=== PATIENT | female | born 1970 | race Caucasian/White ===

== ENCOUNTER 2021-11-26 01:19 | Emergency (ER) | payer BC ==
[~2021-11-26] VITALS: Ht 160 cm; Wt 57.6 kg
[2021-11-26 01:39] VITALS: BP 148/82
[2021-11-26 01:53] LABS: APPEARANCE,URINE CLEAR (CLEAR); BILIRUBIN,URINE NEGATIVE (NEGATIVE); COLOR,URINE YELLOW (YELLOW); GLUCOSE, URINE (UA) NEGATIVE (NEGATIVE); KETONES,URINE NEGATIVE (NEGATIVE); LEUKOCYTE ESTERASE ,URINE NEGATIVE (NEGATIVE); NITRATE,URINE NEGATIVE (NEGATIVE); OCCULT BLOOD,URINE SMALL (NEGATIVE); PROTEIN,URINE NEGATIVE (NEGATIVE); UROBILINOGEN,URINE 0.2 mg/dL (0.2-1.0)
[2021-11-26 02:02] LABS: BACTERIA,URINE Rare /HPF (None Seen); SQUAMOUS EPITHELIAL CELL,UR 0-2 /HPF (0-2); WBC,URINE 0-1 /HPF (0-1)
== END 2021-11-26 02:31 | disposition home or self-care (01) ==
LOC: EDH 01:26
DX: R33.9 Retention of urine, unspecified (principal); Z88.2 Allergy status to sulfonamides; Z90.49 Acquired absence of other specified parts of digestive tract; Z95.0 Presence of cardiac pacemaker
CPT/HCPCS: 51702; 81001

== ENCOUNTER 2022-01-28 09:03 | Emergency (ER) | payer BC ==
[~2022-01-28] VITALS: Ht 160 cm; Wt 55.8 kg
[2022-01-28] MEDS ORDERED: LACTATED RINGERS 1000ML 1,000 ML IV ONE (09:30)
[2022-01-28 09:43] LABS: AMPHET/METH SCREEN,URINE POSITIVE (NEGATIVE); BARBITURATE SCREEN, URINE NEGATIVE (NEGATIVE); BENZODIAZEPINES SCREEN,URINE NEGATIVE (NEGATIVE); CANNABINOID SCREEN,URINE NEGATIVE (NEGATIVE); COCAINE SCREEN,URINE NEGATIVE (NEGATIVE); OPIATE SCREEN,URINE NEGATIVE (NEGATIVE); PHENCYCLIDINE SCREEN,URINE NEGATIVE (NEGATIVE)
[2022-01-28 10:08] LABS: APPEARANCE,URINE Cloudy (CLEAR); BILIRUBIN,URINE Moderate (NEGATIVE); COLOR,URINE Dark Yellow (YELLOW); GLUCOSE, URINE (UA) Negative (NEGATIVE); KETONES,URINE 15 mg/dL (NEGATIVE); LEUKOCYTE ESTERASE ,URINE Small (NEGATIVE); NITRATE,URINE Negative (NEGATIVE); OCCULT BLOOD,URINE Negative (NEGATIVE); PROTEIN,URINE POS 1+ mg/dL (NEGATIVE)
[2022-01-28 10:09] LABS: BASOPHILS % (AUTO) 0.3 % (0.0-5.0); EOSINOPHILS % (AUTO) 0.3 % (0.0-8.0); HEMATOCRIT 41.9 % (36-48); LYMPHOCYTES % (AUTO) 20.7 % (21.0-51.0); MEAN CORPUSCULAR HEMOGLOBIN 27.8 pg (27.0-33.0); MEAN CORPUSCULAR HGB CONC 33.2 g/dL (32.0-36.0); MEAN CORPUSCULAR VOLUME 83.8 fL (79-99); MONOCYTES % (AUTO) 6.2 % (3.0-13.0); NEUTROPHILS % (AUTO) 72.2 % (40.0-77.0); PLATELET COUNT (AUTO) 143 K/uL (130-400); RED CELL DISTRIBUTION WIDTH 13.4 % (11.0-15.5); WHITE BLOOD COUNT (AUTO) 6.6 K/uL (4.8-10.8)
[2022-01-28 10:15] LABS: CREATININE 1.3 mg/dL (0.5-1.5); POTASSIUM 3.6 mmol/L (3.5-5.1)
[2022-01-28 10:16] LABS: BACTERIA,URINE Few /HPF (None Seen); RBC,URINE 0-1 /HPF (0-1)
[2022-01-28 10:17] LABS: SQUAMOUS EPITHELIAL CELL,UR Few /HPF (0-2)
[2022-01-28 10:20] LABS: ALBUMIN 4.3 g/dL (3.5-5.0); BILIRUBIN,TOTAL 0.4 mg/dL (0.2-1.0); TOTAL PROTEIN, SERUM 7.5 g/dL (6.0-8.3)
[2022-01-28 10:31] LABS: B-TYPE NATRIURETIC PEPTIDE 8 pg/mL (0-100)
[2022-01-28 11:22] VITALS: BP 129/74
== END 2022-01-28 11:24 | disposition home or self-care (01) ==
LOC: EDH 09:03
DX: F15.10 Other stimulant abuse, uncomplicated (principal); M54.2 Cervicalgia; R55 Syncope and collapse; F32.9 Major depressive disorder, single episode, unspecified; E11.9 Type 2 diabetes mellitus without complications; Z87.442 Personal history of urinary calculi; Z90.49 Acquired absence of other specified parts of digestive tract; Z90.89 Acquired absence of other organs; Z90.710 Acquired absence of both cervix and uterus; Z98.890 Other specified postprocedural states; Z88.2 Allergy status to sulfonamides; Z88.8 Allergy status to other drugs, medicaments and biological substances
CPT/HCPCS: 36415; 70450; 71045; 72125; 80053; 80305; 81001; 82550; 83880; 84484; 85025; 93005

== ENCOUNTER 2022-02-23 12:04 | Emergency (ER) | payer BC ==
[~2022-02-23] VITALS: Ht 160 cm; Wt 55.8 kg
[2022-02-23 12:28] LABS: BASOPHILS % (AUTO) 0.6 % (0.0-5.0); EOSINOPHILS % (AUTO) 1.7 % (0.0-8.0); HEMATOCRIT 44.6 % (36-48); LYMPHOCYTES % (AUTO) 31.1 % (21.0-51.0); MEAN CORPUSCULAR HEMOGLOBIN 28.1 pg (27.0-33.0); MEAN CORPUSCULAR HGB CONC 31.6 g/dL (32.0-36.0); MONOCYTES % (AUTO) 8.1 % (3.0-13.0); NEUTROPHILS % (AUTO) 58.2 % (40.0-77.0); PLATELET COUNT (AUTO) 187 K/uL (130-400); RED BLOOD CELL COUNT(AUTO) 5.01 MIL/uL (4.00-5.50); RED CELL DISTRIBUTION WIDTH 14.1 % (11.0-15.5); WHITE BLOOD COUNT (AUTO) 6.6 K/uL (4.8-10.8)
[2022-02-23] MEDS: ONDANSETRON 4MG INJ ONE (12:32)
[2022-02-23] MEDS: 0.9%NACL 1000ML 1,000 ML IV ONE (12:32)
[2022-02-23 12:35] LABS: APPEARANCE,URINE Cloudy (CLEAR); BILIRUBIN,URINE Small (NEGATIVE); COLOR,URINE Dark Yellow (YELLOW); GLUCOSE, URINE (UA) Negative (NEGATIVE); KETONES,URINE Trace mg/dL (NEGATIVE); LEUKOCYTE ESTERASE ,URINE Small (NEGATIVE); NITRATE,URINE Negative (NEGATIVE); OCCULT BLOOD,URINE Negative (NEGATIVE); PH,URINE 5.5 (5.0-8.0); PROTEIN,URINE Trace mg/dL (NEGATIVE); UROBILINOGEN,URINE 0.2 mg/dL (0.2-1.0)
[2022-02-23 12:40] LABS: CREATININE 0.9 mg/dL (0.5-1.5); POTASSIUM 4.1 mmol/L (3.5-5.1)
[2022-02-23 12:45] LABS: ALBUMIN 4.1 g/dL (3.5-5.0); BILIRUBIN,TOTAL 0.6 mg/dL (0.2-1.0); TOTAL PROTEIN, SERUM 7.6 g/dL (6.0-8.3)
[2022-02-23 12:57] LABS: BACTERIA,URINE Few /HPF (None Seen); MUCUS,URINE Few LPF (None Seen); RBC,URINE None Seen /HPF (0-1); SQUAMOUS EPITHELIAL CELL,UR 30-50 /HPF (0-2)
[2022-02-23] MEDS: DICYCLOMINE 20MG (10MG/ML) AMP IM STA (13:38)
[2022-02-23] MEDS: FAMOTIDINE 20MG VIAL IV ONE (13:38)
[2022-02-23 14:38] VITALS: BP 128/73
[2022-02-23] MEDS ORDERED: BACI1CAP6 PO (15:20)
[2022-02-23] MEDS ORDERED: DICY20TA2 PO (15:20)
[2022-02-23] MEDS ORDERED: ONDA4TAB10 PO (15:20)
== END 2022-02-23 15:25 | disposition home or self-care (01) ==
LOC: EDH 12:04
DX: K52.9 Noninfective gastroenteritis and colitis, unspecified (principal); E11.9 Type 2 diabetes mellitus without complications; Z79.899 Other long term (current) drug therapy; Z88.2 Allergy status to sulfonamides; Z98.84 Bariatric surgery status
CPT/HCPCS: 36415; 80053; 81001; 83690; 85025; 96361; 96372; 96374; 96375; 99284; J0500; J2405; J3490; J7030

== ENCOUNTER 2022-03-03 14:01 | Emergency (ER) | payer BC ==
[~2022-03-03] VITALS: Ht 160 cm; Wt 56.7 kg
[~2022-03-03 14:01] MED LIST: BACI1CAP6 PO; DICY20TA2 PO; ONDA4TAB10 PO
[2022-03-03] MEDS ORDERED: NIRM1TAB PO (14:51)
[2022-03-03] MEDS ORDERED: PRED5TAB PO (14:51)
[2022-03-03 14:54] VITALS: BP 128/77
[2022-03-03] MEDS ORDERED: 0.9%NACL 1000ML 1,000 ML IV SCH (16:00)
== END 2022-03-03 15:03 | disposition home or self-care (01) ==
LOC: EDH 14:01
DX: U07.1 COVID-19 (principal); R19.7 Diarrhea, unspecified; K21.9 Gastro-esophageal reflux disease without esophagitis; E11.9 Type 2 diabetes mellitus without complications; Z88.2 Allergy status to sulfonamides; Z79.899 Other long term (current) drug therapy

== ENCOUNTER 2022-03-09 12:21 | Emergency (ER) | payer BC ==
[~2022-03-09] VITALS: Ht 160 cm; Wt 54.9 kg
[~2022-03-09 12:21] MED LIST changes: +NIRM1TAB PO; +PRED5TAB PO
[2022-03-09 13:18] LABS: BASOPHILS % (AUTO) 0.3 % (0.0-5.0); EOSINOPHILS % (AUTO) 0.2 % (0.0-8.0); HEMATOCRIT 39.3 % (36-48); LYMPHOCYTES % (AUTO) 27.1 % (21.0-51.0); MEAN CORPUSCULAR HEMOGLOBIN 28.4 pg (27.0-33.0); MEAN CORPUSCULAR HGB CONC 32.6 g/dL (32.0-36.0); MEAN CORPUSCULAR VOLUME 87.3 fL (79-99); MONOCYTES % (AUTO) 5.9 % (3.0-13.0); NEUTROPHILS % (AUTO) 66.2 % (40.0-77.0); PLATELET COUNT (AUTO) 183 K/uL (130-400); WHITE BLOOD COUNT (AUTO) 6.3 K/uL (4.8-10.8)
[2022-03-09] MEDS ORDERED: 0.9%NACL 1000ML 1,000 ML IV ONE (13:30)
[2022-03-09 13:55] LABS: CREATININE 1.1 mg/dL (0.5-1.5); POTASSIUM 3.9 mmol/L (3.5-5.1)
[2022-03-09 13:59] LABS: ALBUMIN 3.9 g/dL (3.5-5.0); BILIRUBIN,TOTAL 0.2 mg/dL (0.2-1.0); TOTAL PROTEIN, SERUM 7.4 g/dL (6.0-8.3)
[2022-03-09] MEDS ORDERED: MORPHINE 4 MG SYG IVP ONE (14:00)
[2022-03-09] MEDS ORDERED: PANTOPRAZOLE 40 MG/VIAL IVP ONE (14:00)
[2022-03-09] MEDS ORDERED: ONDANSETRON 4MG INJ IVP ONE (14:00)
[2022-03-09] MEDS ORDERED: IOHEXOL-350 75 ML VIAL IV ONE (14:32)
[2022-03-09 14:46] LABS: APPEARANCE,URINE Cloudy (CLEAR); BILIRUBIN,URINE Negative (NEGATIVE); COLOR,URINE Yellow (YELLOW); GLUCOSE, URINE (UA) Negative (NEGATIVE); KETONES,URINE Negative (NEGATIVE); LEUKOCYTE ESTERASE ,URINE Trace (NEGATIVE); NITRATE,URINE Negative (NEGATIVE); OCCULT BLOOD,URINE Negative (NEGATIVE); PH,URINE 5.5 (5.0-8.0); PROTEIN,URINE Trace mg/dL (NEGATIVE); UROBILINOGEN,URINE 0.2 mg/dL (0.2-1.0)
[2022-03-09 15:05] LABS: BACTERIA,URINE Few /HPF (None Seen); MUCUS,URINE Few LPF (None Seen); SQUAMOUS EPITHELIAL CELL,UR Few /HPF (0-2)
[2022-03-09] MEDS ORDERED: DICY20TA2 PO (15:42)
[2022-03-09] MEDS ORDERED: VANC125C6 PO (15:42)
[2022-03-09] MEDS ORDERED: ONDA4TAB10 PO (15:42)
[2022-03-09] MEDS ORDERED: LOPE2 PO (15:42)
[2022-03-09 16:15] VITALS: BP 114/67
== END 2022-03-09 16:19 | disposition home or self-care (01) ==
LOC: EDH 12:21
DX: K52.9 Noninfective gastroenteritis and colitis, unspecified (principal); A04.72 Enterocolitis due to Clostridium difficile, not specified as recurrent; E11.9 Type 2 diabetes mellitus without complications; K21.9 Gastro-esophageal reflux disease without esophagitis; Z88.2 Allergy status to sulfonamides; Z88.8 Allergy status to other drugs, medicaments and biological substances; Z79.899 Other long term (current) drug therapy; Z98.890 Other specified postprocedural states
CPT/HCPCS: 36415; 74177; 80053; 81001; 82270; 83605; 83630; 83690; 85025; 87040 ×2; 87046; 87177; 87324; 96361; 96374; 96375; 99284; C9113; J2270; J2405; J7030; Q9967

== ENCOUNTER 2022-04-29 11:45 | Emergency (ER) | payer BC ==
[~2022-04-29] VITALS: Ht 160 cm; Wt 56.7 kg
[~2022-04-29 11:45] MED LIST changes: +LOPE2 PO; +VANC125C6 PO
[2022-04-29 11:46] VITALS: BP 122/62
[2022-04-29 12:23] LABS: BASOPHILS % (AUTO) 0.5 % (0.0-5.0); EOSINOPHILS % (AUTO) 1.2 % (0.0-8.0); HEMATOCRIT 41.6 % (36-48); LYMPHOCYTES % (AUTO) 30.4 % (21.0-51.0); MEAN CORPUSCULAR HEMOGLOBIN 28.5 pg (27.0-33.0); MEAN CORPUSCULAR HGB CONC 32.5 g/dL (32.0-36.0); MEAN CORPUSCULAR VOLUME 87.9 fL (79-99); MONOCYTES % (AUTO) 6.4 % (3.0-13.0); NEUTROPHILS % (AUTO) 61.3 % (40.0-77.0); PLATELET COUNT (AUTO) 160 K/uL (130-400); RED BLOOD CELL COUNT(AUTO) 4.73 MIL/uL (4.00-5.50); RED CELL DISTRIBUTION WIDTH 13.4 % (11.0-15.5); WHITE BLOOD COUNT (AUTO) 5.6 K/uL (4.8-10.8)
[2022-04-29 12:31] LABS: APPEARANCE,URINE CLEAR (CLEAR); BILIRUBIN,URINE NEGATIVE (NEGATIVE); COLOR,URINE YELLOW (YELLOW); GLUCOSE, URINE (UA) 500 mg/dL (NEGATIVE); KETONES,URINE NEGATIVE (NEGATIVE); LEUKOCYTE ESTERASE ,URINE NEGATIVE (NEGATIVE); NITRATE,URINE NEGATIVE (NEGATIVE); OCCULT BLOOD,URINE NEGATIVE (NEGATIVE); PH,URINE 5.5 (5.0-8.0); PROTEIN,URINE NEGATIVE (NEGATIVE); UROBILINOGEN,URINE 0.2 mg/dL (0.2-1.0)
[2022-04-29 12:35] LABS: BACTERIA,URINE Rare /HPF (None Seen); MUCUS,URINE Few LPF (None Seen); RBC,URINE 0-1 /HPF (0-1); SQUAMOUS EPITHELIAL CELL,UR Few /HPF (0-2)
[2022-04-29 12:36] LABS: AMPHET/METH SCREEN,URINE NEGATIVE (NEGATIVE); BARBITURATE SCREEN, URINE NEGATIVE (NEGATIVE); BENZODIAZEPINES SCREEN,URINE NEGATIVE (NEGATIVE); CANNABINOID SCREEN,URINE NEGATIVE (NEGATIVE); COCAINE SCREEN,URINE NEGATIVE (NEGATIVE); OPIATE SCREEN,URINE NEGATIVE (NEGATIVE); PHENCYCLIDINE SCREEN,URINE NEGATIVE (NEGATIVE)
[2022-04-29 12:37] LABS: CALCIUM OXALATE CRYSTALS,UR Many /LPF (None Seen)
[2022-04-29] MEDS ORDERED: NAPR220T57 PO (12:44)
[2022-04-29] MEDS ORDERED: CYCL10TA16 PO (12:44)
[2022-04-29 12:51] LABS: ALBUMIN 3.8 g/dL (3.5-5.0); CREATININE 1.2 mg/dL (0.5-1.5); POTASSIUM 3.7 mmol/L (3.5-5.1); TOTAL PROTEIN, SERUM 7.1 g/dL (6.0-8.3)
[2022-04-29] MEDS ORDERED: KETOROLAC 30MG VIAL (30MG/ML) IM ONE (13:00)
== END 2022-04-29 13:15 | disposition home or self-care (01) ==
LOC: EDH 11:45
DX: M54.12 Radiculopathy, cervical region (principal); E11.9 Type 2 diabetes mellitus without complications; K21.9 Gastro-esophageal reflux disease without esophagitis; Z79.1 Long term (current) use of non-steroidal anti-inflammatories (NSAID); Z79.52 Long term (current) use of systemic steroids; Z79.899 Other long term (current) drug therapy; Z88.2 Allergy status to sulfonamides
CPT/HCPCS: 36415; 80053; 80305; 81001; 82550; 83874; 84484; 85025; 93005; 96372; J1885

== ENCOUNTER 2022-09-17 07:32 | Emergency (ER) | payer BC ==
[~2022-09-17] VITALS: Ht 160 cm; Wt 61.2 kg
[~2022-09-17 07:32] MED LIST changes: +CYCL10TA16 PO; +NAPR220T57 PO
[2022-09-17 07:45] VITALS: BP 129/71
[2022-09-17] MEDS ORDERED: CIPR7.5D OT (07:48)
== END 2022-09-17 08:02 | disposition home or self-care (01) ==
LOC: EDH 07:32
DX: H72.91 Unspecified perforation of tympanic membrane, right ear (principal); R56.9 Unspecified convulsions; Z79.899 Other long term (current) drug therapy; Z90.710 Acquired absence of both cervix and uterus; Z90.49 Acquired absence of other specified parts of digestive tract; Z98.890 Other specified postprocedural states; Z88.8 Allergy status to other drugs, medicaments and biological substances; Z88.2 Allergy status to sulfonamides

== ENCOUNTER 2022-09-30 09:57 | Emergency (ER) | payer BC ==
[~2022-09-30] VITALS: Ht 160 cm; Wt 59.0 kg
[~2022-09-30 09:57] MED LIST changes: +CIPR7.5D OT
[2022-09-30 10:00] VITALS: BP 130/70
[2022-09-30] MEDS ORDERED: CIPR7.5D OT (10:05)
[2022-09-30] MEDS ORDERED: AMOX1TAB16 PO (10:05)
== END 2022-09-30 10:18 | disposition home or self-care (01) ==
LOC: EDH 09:57
DX: H72.91 Unspecified perforation of tympanic membrane, right ear (principal); Z90.49 Acquired absence of other specified parts of digestive tract; Z79.52 Long term (current) use of systemic steroids; Z88.2 Allergy status to sulfonamides; Z95.810 Presence of automatic (implantable) cardiac defibrillator; Z79.899 Other long term (current) drug therapy; Z88.8 Allergy status to other drugs, medicaments and biological substances
CPT/HCPCS: 99281